=== PATIENT | male | born 1965 | race African-American/Black ===

== ENCOUNTER 2017-07-21 14:10 | Emergency (ER) | payer MEDICAID ==
[~2017-07-21] VITALS: Ht 177.8 cm; Wt 95.0 kg
[2017-07-21] MEDS ORDERED: LOSA50TA20 PO (14:19)
[2017-07-21] MEDS ORDERED: IBUPROFEN 800MG TABLET PO ONE (19:00)
[2017-07-21 20:47] VITALS: BP 121/81
== END 2017-07-21 20:49 | disposition home or self-care (01) ==
LOC: ER 14:10
DX: M79.641 Pain in right hand (principal); I10 Essential (primary) hypertension; Z98.890 Other specified postprocedural states
CPT/HCPCS: 73110; 73130; 99284

== ENCOUNTER 2017-11-08 10:11 | Emergency (ER) | payer MEDICAID ==
[~2017-11-08] VITALS: Ht 177.8 cm; Wt 100.0 kg
[~2017-11-08 10:11] MED LIST: LOSA50TA20 PO
[2017-11-08] MEDS ORDERED: AMLODIPINE 2.5MG TABLET PO ONE (11:00)
[2017-11-08 11:08] LABS: BASOPHILS % 0.6 % (0.0-2.0); EOSINOPHILS % 0.7 % (0.0-5.0); HEMATOCRIT. 44.2 % (42.0-52.0); HEMOGLOBIN. 14.6 g/dL (14.0-18.0); LYMPHOCYTES % 24.8 % (20.0-50.0); MEAN CORPUSCULAR HEMOGLOBIN 28.9 pg (28.0-32.0); MEAN CORPUSCULAR VOLUME 87.2 fL (80.0-94.0); MEAN PLATELET VOLUME 7.4 fl (7.4-10.4); MONOCYTES % 7.4 % (2.0-8.0); NEUTROPHILS % 66.5 % (40.0-76.0); PLATELET 272 x1000/uL (130-400); RED BLOOD CELL COUNT 5.07 mill/uL (4.7-6.1); RED CELL DISTRIBUTION WIDTH 15.7 % (11.6-14.6)
[2017-11-08 11:23] LABS: CARBON DIOXIDE 27 mEq/L (21-32); CHLORIDE 106 mEq/L (98-107)
[2017-11-08] MEDS ORDERED: CLONIDINE 0.1MG TABLET PO ONE (12:30)
[2017-11-08 13:05] VITALS: BP 172/99
== END 2017-11-08 13:35 | disposition home or self-care (01) ==
LOC: ER 11:21
DX: I16.0 Hypertensive urgency (principal); I10 Essential (primary) hypertension; R42 Dizziness and giddiness
CPT/HCPCS: 36415; 80053; 85025; 93005; 99285; Z7610

== ENCOUNTER 2022-04-18 05:06 | Inpatient (IN) | payer SELFPAY ==
[~2022-04-18] VITALS: Ht 177.8 cm; Wt 104.3 kg
[~2022-04-18 05:06] MED LIST changes: -LOSA50TA20 PO; +LOSA50TA41 PO
[2022-04-18] MEDS ORDERED: ONDANSETRON HCL 4MG/2ML INJ IV STA (06:27)
[2022-04-18] MEDS ORDERED: SODIUM CHLORIDE 0.9% 1,000 ML IV ONE (06:30)
[2022-04-18] MEDS ORDERED: ENALAPRIL 2.5MG/2ML VIAL 2ML IV ONE (06:30)
[2022-04-18 07:00] LABS: BASOPHILS % 0.2 % (0.0-2.0); HEMATOCRIT. 50.9 % (42.0-52.0); HEMOGLOBIN. 17.1 g/dL (14.0-18.0); LYMPHOCYTES % 8.2 % (20.0-50.0); MEAN CORPUSCULAR HEMOGLOBIN 31.2 pg (28.0-32.0); MEAN CORPUSCULAR VOLUME 92.5 fL (80.0-94.0); MEAN PLATELET VOLUME 7.9 fl (7.4-10.4); MONOCYTES % 9.6 % (2.0-8.0); PLATELET 206 x1000/uL (130-400); RED CELL DISTRIBUTION WIDTH 15.6 % (11.6-14.6)
[2022-04-18 07:05] LABS: CHLORIDE 105 mEq/L (98-107)
[2022-04-18 07:16] LABS: ETHANOL BLOOD < 10 mg/dL
[2022-04-18] MEDS ORDERED: ONDANSETRON HCL 4MG/2ML INJ IV PRN (10:30)
[2022-04-18] MEDS ORDERED: ENOXAPARIN 40MG/0.4ML SYR SUBCUT SCH (10:30)
[2022-04-18] MEDS ORDERED: ACETAMINOPHEN 325MG TABLET PO PRN ×2 (10:30)
[2022-04-18] MEDS ORDERED: CLONIDINE 0.1MG TABLET PO PRN (10:30)
[2022-04-18] MEDS ORDERED: NITROGLYCERIN 0.4MG TABLET SL SL PRN (10:30)
[2022-04-18] MEDS ORDERED: IPRATROPIUM/ALBUTEROL 0.5-3(2.5)MG/3ML NEB NEB PRN (10:30)
[2022-04-18] MEDS ORDERED: DOCUSATE SODIUM 100MG CAPSULE PO PRN (10:30)
[2022-04-18] MEDS ORDERED: POTASSIUM CHLORIDE 20MEQ TABLET SR PO NR (10:30)
[2022-04-18] MEDS ORDERED: MAGNESIUM/ALUMINUM HYDROXIDE/SIMETHICONE 30ML UDC PO PRN (10:30)
[2022-04-18] MEDS ORDERED: GUAIFENESIN 200MG/10ML SUGAR FREE UDC PO PRN (10:30)
[2022-04-18] MEDS ORDERED: KETOROLAC 15MG/ML VIAL IV PRN (10:30)
[2022-04-18] MEDS: AMLODIPINE 5MG TABLET PO SCH (10:47)
[2022-04-18] MEDS: PANTOPRAZOLE SODIUM 40 MG/VIAL IV SCH (10:48)
[2022-04-18] MEDS: ENOXAPARIN 30MG/0.3ML SYR SUBCUT SCH ×2 (10:49→21:21)
[2022-04-18] MEDS: SODIUM CHLORIDE 0.9% 1,000 ML IV SCH ×2 (10:50→22:59)
[2022-04-18 11:35] LABS: FOLIC ACID (FOLATE) SERUM 8.3 ng/mL (>5.38)
[2022-04-18 12:06] LABS: CLARITY URINE CLOUDY (CLEAR); COLOR URINE DARK YELLOW (YELLOW); KETONES URINE TRACE (NEGATIVE); LEUKOCYTE ESTERASE URINE TRACE (NEGATIVE); NITRITE URINE POSITIVE (NEGATIVE); OCCULT BLOOD URINE NEGATIVE (NEGATIVE); PROTEIN URINE 2+ (NEGATIVE)
[2022-04-18 12:25] LABS: *AMPHETAMINES SCREEN URINE NEGATIVE (NEGATIVE); *BARBITURATES SCREEN URINE NEGATIVE (NEGATIVE); *BENZODIAZEPINES SCREEN URINE NEGATIVE (NEGATIVE); *COCAINE SCREEN URINE NEGATIVE (NEGATIVE); CANNABINOID URINE SCREEN NEGATIVE (NEGATIVE); METHADONE URINE SCREEN NEGATIVE (NEGATIVE); OPIATES URINE SCREEN NEGATIVE (NEGATIVE); PHENCYCLIDINE URINE SCREEN NEGATIVE (NEGATIVE)
[2022-04-18 12:30] VITALS: BP 136/95
[2022-04-18 16:00] VITALS: BP 118/69
[2022-04-18] MEDS ORDERED: CEFTRIAXONE 1 G PREMIX 50 ML IV SCH (18:15)
[2022-04-18 20:00] VITALS: BP 132/85
[2022-04-18] MEDS ORDERED: ZOLPIDEM TARTRATE 5MG TABLET PO PRN (21:00)
[2022-04-18] MEDS: CEFTRIAXONE 1,000 MG in DEXTROSE 5% WATER 50 ML IV SCH (21:21)
[2022-04-19] VITALS: BP 158/95
[2022-04-19 04:00] VITALS: BP 142/73
[2022-04-19 08:00] VITALS: BP 162/117
[2022-04-19 08:37] LABS: BASOPHILS % 0.1 % (0.0-2.0); EOSINOPHILS % 0.1 % (0.0-5.0); HEMATOCRIT. 46.3 % (42.0-52.0); HEMOGLOBIN. 15.2 g/dL (14.0-18.0); LYMPHOCYTES % 11.9 % (20.0-50.0); MEAN CORPUSCULAR HEMOGLOBIN 31.4 pg (28.0-32.0); MEAN CORPUSCULAR VOLUME 95.4 fL (80.0-94.0); MEAN PLATELET VOLUME 8.2 fl (7.4-10.4); MONOCYTES % 10.5 % (2.0-8.0); NEUTROPHILS % 77.4 % (40.0-76.0); PLATELET 192 x1000/uL (130-400); RED BLOOD CELL COUNT 4.85 mill/uL (4.7-6.1); RED CELL DISTRIBUTION WIDTH 15.6 % (11.6-14.6)
[2022-04-19 08:44] LABS: CHLORIDE 106 mEq/L (98-107)
[2022-04-19 08:52] LABS: AMYLASE 46 IU/L (25-115); PHOSPHORUS 1.8 mg/dL (2.5-4.9)
[2022-04-19] MEDS: AMLODIPINE 5MG TABLET PO SCH (09:06)
[2022-04-19] MEDS: PANTOPRAZOLE SODIUM 40 MG/VIAL IV SCH (09:06)
[2022-04-19] MEDS: ENOXAPARIN 30MG/0.3ML SYR SUBCUT SCH ×2 (09:07→20:55)
[2022-04-19 12:00] VITALS: BP 159/87
[2022-04-19] MEDS ORDERED: POTASSIUM PHOS,M-BASIC-D-BASIC 20 MMOL in DEXT 5% WATER 243.3333 ML IV NR (13:00)
[2022-04-19] MEDS: SODIUM CHLORIDE 0.9% 1,000 ML IV SCH (13:30)
[2022-04-19 16:00] VITALS: BP 107/57
[2022-04-19 20:00] VITALS: BP 168/113
[2022-04-19] MEDS: CEFTRIAXONE 1,000 MG in DEXTROSE 5% WATER 50 ML IV SCH (20:48)
[2022-04-20] VITALS: BP 149/103
[2022-04-20] MEDS: SODIUM CHLORIDE 0.9% 1,000 ML IV SCH (02:30)
[2022-04-20 04:00] VITALS: BP 145/91
[2022-04-20 07:11] LABS: BASOPHILS % 0.1 % (0.0-2.0); EOSINOPHILS % 0.3 % (0.0-5.0); HEMATOCRIT. 45.5 % (42.0-52.0); HEMOGLOBIN. 15.2 g/dL (14.0-18.0); LYMPHOCYTES % 13.4 % (20.0-50.0); MEAN CORPUSCULAR HEMOGLOBIN 31.2 pg (28.0-32.0); MEAN CORPUSCULAR VOLUME 93.5 fL (80.0-94.0); MEAN PLATELET VOLUME 8.1 fl (7.4-10.4); MONOCYTES % 10.8 % (2.0-8.0); NEUTROPHILS % 75.4 % (40.0-76.0); PLATELET 220 x1000/uL (130-400); RED BLOOD CELL COUNT 4.87 mill/uL (4.7-6.1); RED CELL DISTRIBUTION WIDTH 15.6 % (11.6-14.6)
[2022-04-20 07:32] LABS: CHLORIDE 104 mEq/L (98-107)
[2022-04-20 07:43] LABS: PHOSPHORUS 1.7 mg/dL (2.5-4.9)
[2022-04-20 08:00] VITALS: BP 134/98
[2022-04-20] MEDS: AMLODIPINE 5MG TABLET PO SCH (08:58)
[2022-04-20] MEDS: ENOXAPARIN 30MG/0.3ML SYR SUBCUT SCH (08:58)
[2022-04-20] MEDS ORDERED: FAMOTIDINE 20MG/2ML VIAL IV SCH (09:00)
[2022-04-20 10:09] VITALS: BP 134/98
[2022-04-20] MEDS ORDERED: POTASSIUM PHOS,M-BASIC-D-BASIC 20 MMOL in DEXT 5% WATER 243.3333 ML IV ONE (11:00)
[2022-04-20 12:00] VITALS: BP 141/97
[2022-04-20] MEDS ORDERED: FAMOTIDINE 20MG TABLET PO SCH (17:00)
== END 2022-04-20 13:27 | disposition home or self-care (01) | DRG 282 ==
LOC: ER 05:33 → 6EST 10:14 → EDBEDREQTM 10:15 → EDBEDREQ 10:15 → ENRESERV 11:19
PROVIDERS: ADMIT Internal Medicine; ATTEND Internal Medicine
DX: K85.20 Alcohol induced acute pancreatitis without necrosis or infection (principal); E44.1 Mild protein-calorie malnutrition; E87.6 Hypokalemia; N39.0 Urinary tract infection, site not specified; I10 Essential (primary) hypertension; Y90.0 Blood alcohol level of less than 20 mg/100 ml; F10.10 Alcohol abuse, uncomplicated; R79.89 Other specified abnormal findings of blood chemistry; Z68.33 Body mass index [BMI] 33.0-33.9, adult; Z79.899 Other long term (current) drug therapy; Z91.14 Patient's other noncompliance with medication regimen
CPT/HCPCS: 36415; 71045; 74176; 80053; 80061; 80305; 80320; 81003; 82150; 82607; 82746; 83036; 83540; 83550; 83735; 83880; 84100; 84443; 84484; 85025; 93005; 93970; 99285; C9113; J0696; J1650; J2405; J3490; J7030; J7060; G0480

== ENCOUNTER 2023-04-17 17:57 | Emergency (ER) | payer SELFPAY ==
[~2023-04-17] VITALS: Ht 177.8 cm; Wt 111.1 kg
[2023-04-17 19:52] LABS: CLARITY URINE CLEAR (CLEAR); COLOR URINE ORANGE (YELLOW); KETONES URINE TRACE (NEGATIVE); LEUKOCYTE ESTERASE URINE 1+ (NEGATIVE); NITRITE URINE NEGATIVE (NEGATIVE); OCCULT BLOOD URINE NEGATIVE (NEGATIVE); PH URINE 6.5 (4.5-8.0); PROTEIN URINE 1+ (NEGATIVE); SPECIFIC GRAVITY URINE 1.023 (1.005-1.030)
[2023-04-17 20:26] VITALS: BP 129/82
== END 2023-04-17 20:29 | disposition home or self-care (01) ==
LOC: ER 17:57
DX: I86.1 Scrotal varices (principal); I10 Essential (primary) hypertension
CPT/HCPCS: 73140; 76870; 81003; 93976; 99285